=== PATIENT | female | born 1965 | race Caucasian/White ===

== ENCOUNTER → 2020-09-17 07:17 | Outpatient (CLI) | payer OTHER, SELFPAY ==
[2018-09-17 10:36] VITALS: BMI 30.4
[2020-09-17 10:19] LABS: Absolute Neutrophil Count 3.1 X10^3/uL (2.0-7.7); Basophil# 0.06 X10^3/uL; Eosinophil# 0.28 X10^3/uL; Eosinophils% 4.9 % (0-5); Hematocrit 43.3 % (37-47); Lymphocyte % 34.8 % (19-41); Mean Corp Hgb Conc 32.3 g/dL (32-36); Mean Corpuscular Hgb 28.4 pg (27.0-32.0); Mean Corpuscular Volume 87.8 fL (81-99); Mean Platelet Vol. 10.6 fl (6.2-12.0); Monocyte# 0.28 X10^3/uL; Monocyte% 4.9 % (0-10); NRBC Flagged by Analyzer 0 % (0-5); Neutrophil % 54.1 % (47-70); Platelet Count 318 K/mm3 (150-450); RBC Distribution Width CV 12.5 % (11.6-14.6); RBC Distribution Width SD 40.4 fl (35.1-43.9); Red Blood Count 4.93 M/mm3 (4.2-5.4); White Blood Count 5.7 K/mm3 (4.4-11.0)
[2020-09-17 11:05] LABS: ALB/GLOB Ratio 1.1 RATIO (0.9-2.4); AST(SGOT) 24 U/L (15-37); Alanine Aminotransfer ALT/SGPT 41 U/L (13-56); Albumin, Serum 3.8 g/dL (3.2-5.0); Alkaline Phosphatase 87 U/L (45-117); Anion Gap 7 (5-15); BUN 19 mg/dL (7-18); BUN/Creat Ratio 18.6 RATIO (10-20); Calcium,Total 9.2 mg/dL (8.5-10.1); Chloride 108 mmol/L (98-107); Cholesterol 180 mg/dL (200); Creatinine, Serum 1.02 mg/dL (0.55-1.02); EST Glomerular Filtration Rate 60 mL/min (>60); Est Glom Filt Rate - Afr Amer 72 mL/min (>60); Globulin 3.6 g/dL (2.2-4.2); Glucose 142 mg/dL (74-106); High Density Lipoprotein 53 mg/dL; Potassium 3.8 mmol/L (3.5-5.1); Protein, Total 7.4 g/dL (6.4-8.2); Sodium Level 141 mmol/L (136-145); Thyroid Stim Hormone (TSH) 1.96 uIU/mL (0.358-3.74); Triglycerides 93 mg/dL; Very Low Density Lipoprotein 19 mg/dL (5-40)
== END ==
PROVIDERS: PCP Family Medicine; Referring Provider Family Medicine; Visit Provider Family Medicine
DX: Z00.00 Encounter for general adult medical examination without abnormal findings (principal); G47.00 Insomnia, unspecified; R53.83 Other fatigue
CPT/HCPCS: 36415; 80053; 80061; 84443; 85025

== ENCOUNTER → 2020-10-29 12:12 | Outpatient (CLI) | payer OTHER, SELFPAY ==
[2018-09-17 10:36] VITALS: BMI 30.4
--- NOTE | 2020-10-29 12:14 | BI_ITS ---
MAMMOGRAPHY - BILATERAL SCREENING REASON FOR EXAM: Female, 55 years old. Routine annual screening examination. PERTINENT HISTORY: Non-contributory. TECHNIQUE: Digital bilateral breast duong (3D mammographic acquisition) in the CC and MLO projections. 2-D mediolateral oblique (MLO) and craniocaudad (CC) views of both breasts were obtained. CAD: Full Field Digital Mammography with Computer Added Detection was performed. COMPARISON: Comparison is made with prior study dated 05/15/2014 and 10/09/2011. FINDINGS: Breast Composition: There are scattered areas of fibroglandular density. There is a 3.1 mm x 4.7 mm well-defined nodule in the retroareolar region of the left breast. Correlation with ultrasound is recommended. Stable small benign appearing bilateral axillary lymph nodes. No other significant abnormalities are identified. BI/SCRN MAMM (CAD)W/DUONG BILAT IMPRESSION: 3.1 mm x 4.7 mm well-defined nodule in the retroareolar region of the left breast as described. Correlation with ultrasound is recommended. ASSESSMENT CATEGORY: BIRADS Category 0: Incomplete. Need additional imaging evaluation. A letter regarding these results will be sent to the patient by the facility within 30 days. Approximately 10% of breast cancers are not detected by mammography. A normal mammogram should not delay biopsy of a clinically suspicious abnormality. [id number] Electronically Signed: Gerald Rey MD at 13:31 EDT , Service support ,
== END ==
PROVIDERS: PCP Family Medicine; Referring Provider Family Medicine; Visit Provider Family Medicine
DX: Z12.31 Encounter for screening mammogram for malignant neoplasm of breast (principal)
CPT/HCPCS: 77063; 77067

== ENCOUNTER → 2020-11-05 11:03 | Outpatient (CLI) | payer OTHER, SELFPAY ==
[2018-09-17 10:36] VITALS: BMI 30.4
--- NOTE | 2020-11-05 11:09 | US_ITS ---
STUDY: ULTRASOUND BREAST - LEFT REASON FOR EXAM: Female, 55 years old. Abnormal screening mammogram. TECHNIQUE: Axial and longitudinal images of the LEFT breast were performed with a high resolution ultrasound transducer. # OF IMAGES: 10 COMPARISON: Comparison is made with prior mammogram dated 10/29/2020. FINDINGS: LEFT Breast: There is a 5 mm x 4 mm x 4 mm cyst with a septation at the 6 o''clock position of the breast at 2 cm from nipple. Routine mammographic follow-up is recommended. US/Breast Limited Unilateral IMPRESSION: 5 mm x 4 mm x 4 mm cyst with septation at the 6 o''clock position of the breast at 2 cm from nipple. ASSESSMENT CATEGORY: BIRADS Category 2: Benign. A letter regarding these results will be sent to the patient by the facility within 30 days. Electronically Signed: Gerald Rey MD at 12:38 EDT , Service support ,
== END ==
PROVIDERS: PCP Family Medicine; Referring Provider Family Medicine; Visit Provider Family Medicine
DX: R92.2 Inconclusive mammogram (principal)
CPT/HCPCS: 76642

== ENCOUNTER → 2021-12-02 | Outpatient (CLI) | payer OTHER, SELFPAY ==
--- NOTE | 2021-12-02 09:07 | BI_ITS ---
MAMMOGRAPHY - BILATERAL DIAGNOSTIC REASON FOR EXAM: Female, 56 years old. History of prior left breast cyst. PERTINENT HISTORY: Non-contributory. TECHNIQUE: Digital bilateral breast amy (3D mammographic acquisition) in the CC and MLO projections. 2-D mediolateral oblique (MLO) and craniocaudad (CC) views of both breasts were obtained. CAD: Full Field Digital Mammography with Computer Added Detection was performed. COMPARISON: Comparison is made with prior study dated 10/29/2020 and 05/15/2014. FINDINGS: Breast Composition: There are scattered areas of fibroglandular density. There are no dominant masses or suspicious calcifications. The previously seen 3.1 mm x 4.7 mm nodular density in the retroareolar region of the left breast is not well seen at this time. Stable small benign-appearing bilateral axillary lymph nodes. No other significant abnormalities are identified. BI/DIAG MAMM W/CAD, BILAT IMPRESSION: Stable bilateral diagnostic mammogram. One year follow-up recommended. (A) ASSESSMENT CATEGORY: BIRADS Category 2: Benign. A letter regarding these results will be sent to the patient by the facility within 30 days. Approximately 10% of breast cancers are not detected by mammography. A normal mammogram should not delay biopsy of a clinically suspicious abnormality. Electronically Signed: Gerald Rey MD at 10:07 EDT ,
--- NOTE | 2021-12-02 09:07 | US_ITS ---
STUDY: ULTRASOUND BREAST - LEFT REASON FOR EXAM: Female, 56 years old. History of left breast cyst. TECHNIQUE: Axial and longitudinal images of the LEFT breast were performed with a high resolution ultrasound transducer. # OF IMAGES: 13 COMPARISON: Comparison is made with prior mammogram done earlier in the day and prior sonogram of the left breast dated 11/05/2020. FINDINGS: LEFT Breast: The retroareolar region of the breast was examined with ultrasound. No sonographic abnormality is seen. US/Breast Limited Unilateral IMPRESSION: No sonographic abnormality is seen. ASSESSMENT CATEGORY: BIRADS Category 1: Negative. A letter regarding these results will be sent to the patient by the facility within 30 days. Electronically Signed: Gerald Rey MD at 10:08 EDT ,
== END | disposition home or self-care (01) ==
PROVIDERS: PCP Family Medicine; Referring Provider Family Medicine; Visit Provider Family Medicine
DX: N64.4 Mastodynia (principal); N60.09 Solitary cyst of unspecified breast
CPT/HCPCS: 76642; 77062; 77066; G0279